=== PATIENT | female | born 1975 | race Caucasian/White ===

== ENCOUNTER 2024-09-30 10:38 | Day surgery (SDC) | payer BC ==
[~2024-09-30] VITALS: Ht 162.6 cm; Wt 63.9 kg
[~2024-09-30 10:38] MED LIST: B-12100010 PO; ESTR1TAB PO; LEVO100T5 PO; LEXA1TAB PO; SEMA1.7P SC
[2024-09-30 12:02] VITALS: BP 125/57; TEMP 97.5; O2SAT 100
== END 2024-09-30 12:08 | disposition home or self-care (01) ==
LOC: M OPP 10:38
PROVIDERS: ATTEND Internal Medicine Gastroenterology
DX: Z12.11 Encounter for screening for malignant neoplasm of colon (principal); K64.0 First degree hemorrhoids; Z79.85 Long-term (current) use of injectable non-insulin antidiabetic drugs; Z79.899 Other long term (current) drug therapy; Z87.891 Personal history of nicotine dependence

== ENCOUNTER → 2025-01-07 | Outpatient (CLI) | payer BC | LOC: M WHC 08:15 | PROVIDERS: ATTEND Student in an Organized Health Care Education/Training Program | DX: Z12.31 Encounter for screening mammogram for malignant neoplasm of breast (principal); R92.333 Mammographic heterogeneous density, bilateral breasts; R92.8 Other abnormal and inconclusive findings on diagnostic imaging of breast ==

== ENCOUNTER → 2025-02-04 | Outpatient (CLI) | payer BC | LOC: M WHC 14:44 | PROVIDERS: ATTEND Student in an Organized Health Care Education/Training Program | DX: R92.8 Other abnormal and inconclusive findings on diagnostic imaging of breast (principal) | CPT/HCPCS: 76642; 77066; G0279 ==